=== PATIENT | female | born 1980 | race Asian ===

== ENCOUNTER 2017-09-03 00:10 | Inpatient (IN) | payer SELFPAY ==
[~2017-09-03] VITALS: Ht 157.5 cm; Wt 69.4 kg
[~2017-09-03 00:10] MED LIST: IBUP-2213 PO
[2017-09-03] MEDS ORDERED: LACTATED RINGERS 1,000 ML IV SCH (01:22)
[2017-09-03] MEDS ORDERED: PROMETHAZINE 25 MG/ML VIAL IVP PRN (01:25)
[2017-09-03] MEDS ORDERED: CARBOPROST 250 MCG/ML AMP IM PRN (01:25)
[2017-09-03] MEDS ORDERED: NALBUPHINE HYDROCHLORIDE 10 MG/ML VIAL IVP PRN (01:25)
[2017-09-03] MEDS ORDERED: METHYLERGONOVINE 0.2 MG/ML AMP IM PRN (01:25)
[2017-09-03] MEDS ORDERED: LIDOCAINE 1% 50 ML ONE (01:51)
[2017-09-03] MEDS ORDERED: OXYTOCIN 10 UNITS/ML VIAL ONE (01:51)
[2017-09-03 02:00] LABS: HEMATOCRIT 37.1 % (36-48); HEMOGLOBIN 12.1 g/dL (12.0-16.0); MEAN CORPUSCULAR HEMOGLOBIN 29 pg (27-31); MEAN CORPUSCULAR HGB CONC 33 g/dL (33-37); MEAN CORPUSCULAR VOLUME 90 fL (80-94); PLATELET COUNT (AUTO) 274 K/uL (140-450); RED BLOOD CELL COUNT(AUTO) 4.14 MIL/uL (4.20-5.40); RED CELL DISTRIBUTION WIDTH 14.3 % (11.6-13.7)
[2017-09-03 02:04] LABS: APPEARANCE,URINE CLOUDY (CLEAR); BILIRUBIN,URINE NEGATIVE (NEGATIVE); BLOOD, URINE 3+ (NEGATIVE); COLOR,URINE RED (YELLOW); LEUKOCYTE ESTERASE ,URINE 3+ (NEGATIVE); NITRITE, URINE NEGATIVE (NEGATIVE); UGLUCOSE NEGATIVE (NEGATIVE)
[2017-09-03 02:15] LABS: ALBUMIN 2.6 g/dL (3.4-5.0); ANION GAP 14.3 (8-16); CARBON DIOXIDE 24.4 mmol/L (21-32); CREATININE 0.6 mg/dL (0.6-1.3); POTASSIUM 3.7 mmol/L (3.5-5.1); TOTAL BILIRUBIN 0.3 mg/dL (0.0-1.0)
[2017-09-03 02:18] LABS: WHITE BLOOD COUNT (AUTO) 18.4 K/uL (4.8-10.8)
[2017-09-03 02:20] LABS: LYMPHOCYTES % (MANUAL) 7 % (20-46); MONOCYTES % (MANUAL) 3 % (5-12)
[2017-09-03 02:29] LABS: RBC,URINE TOO NUMEROUS TO COUN /HPF (0-5); WBC,URINE TOO MANY TO COUNT /HPF (0-5)
[2017-09-03 03:21] VITALS: BP 128/68
--- NOTE | 2017-09-03 08:45 | NUR ---
PATIENT HAS BEEN SCREENED AND CATEGORIZED LOW NUTRITION RISK. PATIENT WILL BE SEEN WITHIN 7 DAYS OF ADMISSION. 09/09/[address]
[2017-09-05 15:08] LABS: HEPATITIS B SURFACE ANTIGEN Negative (Negative)
== END 2017-09-04 16:35 | disposition home or self-care (01) | DRG 775 ==
LOC: MLD 00:10 → MFCC 04:40
PROVIDERS: ADMIT Obstetrics & Gynecology; ATTEND Obstetrics & Gynecology
PROC: 10E0XZZ Delivery of Products of Conception, External Approach (ICD-10-PCS; principal; 2017-09-03)
PROC: 0HQ9XZZ Repair Perineum Skin, External Approach (ICD-10-PCS; 2017-09-03)
DX: O70.0 First degree perineal laceration during delivery (principal); Z37.0 Single live birth; Z3A.38 38 weeks gestation of pregnancy
CPT/HCPCS: 36415; 59409; 80053; 81001; 85025; 86592; 86762; 86886; 86900; 86901; 87086; 87340; J2001; J2590; J7120